=== PATIENT | female | born 1985 | race Caucasian/White ===

== ENCOUNTER 2017-06-22 15:52 | Emergency (ER) | payer SELFPAY ==
[~2017-06-22] VITALS: Ht 154.9 cm; Wt 65.8 kg
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
--- NOTE | 2017-06-22 16:13 | NUR ---
DR LOPEZ AT BEDSIDE FOR EVAL.
--- NOTE | 2017-06-22 16:20 | NUR ---
PT UNSURE OF POSSIBILITY OF BEING . WANTS HCG CHECK.
--- NOTE | 2017-06-22 17:10 | NUR ---
PT TO RADIOLOGY FOR HEAD CT SCAN VIA [facility].
[2017-06-22] MEDS ORDERED: HYDROCODONE/APAP 5/325MG 1 EACH TABLET ONE (17:52)
[2017-06-22] MEDS ORDERED: HYDROCODONE/APAP 5/325MG 1 EACH TABLET PO ONE (18:00)
--- NOTE | 2017-06-22 18:17 | NUR ---
Patient discharged to home in stable condition. Written and verbal after care instructions given. Patient verbalizes understanding of instruction.
[2017-06-22 18:20] VITALS: BP 128/77
== END 2017-06-22 18:21 | disposition home or self-care (01) ==
LOC: ER 15:56
DX: S70.12XA Contusion of left thigh, initial encounter (principal); S09.8XXA Other specified injuries of head, initial encounter; V49.49XA Driver injured in collision with other motor vehicles in traffic accident, initial encounter; Y93.89 Activity, other specified; Y92.413 State road as the place of occurrence of the external cause; Y99.8 Other external cause status
CPT/HCPCS: 70450-TC; 73552; 84703-TC; A4606; Z7610